=== PATIENT | male | born 1985 | race Asian ===

== ENCOUNTER 2019-02-25 16:30 | Emergency (ER) | payer OTHER ==
[~2019-02-25] VITALS: Ht 180.3 cm; Wt 97.5 kg
[2019-02-25 16:33] VITALS: TEMP 98.1
[2019-02-25 18:22] VITALS: BP 133/88
== END 2019-02-25 18:23 ==
LOC: ED 16:30
DX: S02.2XXA Fracture of nasal bones, initial encounter for closed fracture (principal); W51.XXXA Accidental striking against or bumped into by another person, initial encounter; Y93.67 Activity, basketball; Y92.149 Unspecified place in prison as the place of occurrence of the external cause
CPT/HCPCS: 99283